=== PATIENT | female | born 1950 | race Caucasian/White ===

== ENCOUNTER → 2017-07-24 | Outpatient (CLI) | payer OTHER | LOC: CIMAGING 09:38 | PROVIDERS: ATTEND Obstetrics & Gynecology | DX: Z12.31 Encounter for screening mammogram for malignant neoplasm of breast (principal) | CPT/HCPCS: G0202 ==

== ENCOUNTER → 2017-11-08 | Outpatient (CLI) | payer OTHER | LOC: FIMAGING 14:31 | PROVIDERS: ATTEND Obstetrics & Gynecology | DX: Z13.820 Encounter for screening for osteoporosis (principal); M85.89 Other specified disorders of bone density and structure, multiple sites ==

== ENCOUNTER → 2018-01-11 | Outpatient (CLI) | payer OTHER | LOC: CIMAGING 08:43 | PROVIDERS: ATTEND Internal Medicine Endocrinology, Diabetes & Metabolism | DX: E04.2 Nontoxic multinodular goiter (principal) | CPT/HCPCS: 76536-PO ==

== ENCOUNTER 2018-02-21 13:15 | Observation (INO) | payer OTHER ==
--- NOTE | 2018-02-15 13:29 | PDGENHP ---
History and Physical History and Physical: Assessment and Plan: 1. Cystocele, lateral Carleen unfortunately has recurrent vaginal prolapse involving all 3 compartments but predominantly her anterior. We reviewed all conservative and surgical options. She has tried a pessary in the past and did not like how it felt. At the end of our discussion she wishes to schedule a sacral colpopexy. She would like this scheduled in [place]. We have requested a copy of her prior operative notes to better understand her prior surgeries. In the meantime I would like her to start using estrogen cream in the vagina 3 times per week until surgery. Addendum: We received a copy of 2 operative reports. In June 2010 she underwent a laparoscopic-assisted vaginal hysterectomy and posterior repair. A urologist placed a polypropylene retropubic top-down mid urethral sling. We do not have a copy of the hysterectomy or posterior repair operative note. In March 2011 she underwent a transvaginal anterior wall repair with the Prosima transvaginal mesh kit. This appears to have been a polypropylene mesh. 2. Rectocele 3. Post-menopausal atrophic vaginitis Subjective: Patient ID: Carleen aHrris is a 67 y.o. female who presents to [facility] for prolapse. HPI Carleen Harris presents for a preoperative visit. She is scheduled for a sacrocolpopexy. The risks, benefits, and alternatives were presented and informed consent was obtained. 40 minutes of this 40 minute appointment was spent counceling, reviewing the procedure in detail, and discussing the preoperative and postoperative instructions. Below is a copy of our prior visit note. Carleen was kindly referred by Dr. Wolf for vaginal prolapse. Her history is significant for a vaginal hysterectomy with what sounds like an anterior colporrhaphy, possibly with mesh in [place] in 2009. She then had some sort of failure and was told the vaginal wall is now falling down. A second vaginal surgery with mesh was performed in 2010. She had been doing fairly well until about 1 year ago when she noticed a protrusion once again from her vagina. She can feel it stick out. It is not as severe as it was before. She does have some difficulty voiding and must void 4 times within a 30 minute period first thing in the morning. She also has urinary urgency at night and at times can leak on the way. She wakes up between 0 and 1 time per night. She has learned to reduce her fluid intake before going to sleep. She often must change positions or splint to empty her bladder more completely. She has no stress incontinence symptoms. She has had some problems with fecal urgency but this has improved since stopping her magnesium supplementation. She remains sexually active. She has no dyspareunia. PastMedicalHistory Past Medical History: Diagnosis Date Allergy to pollen Anemia Thyroid disease Nodules Trauma Urinary tract infection Varicella PastSurgicalHistory Past Surgical History: Procedure Laterality Date BLADDER SURGERY 2009 DILATION AND CURETTAGE OF UTERUS HYSTERECTOMY 2009 TONSILLECTOMY VAGINAL PROLAPSE REPAIR 2010 CURRENT MEDICATIONS: Current Outpatient Prescriptions Medication Sig ergocalciferol, vitamin D2, (VITAMIN D PO) calcium carbonate-vitamin D3 600 mg-400 unit per tablet Take 2 tablets by mouth daily. No current facility-administered medications for this visit. ALLERGIES: Patient has no known allergies. I have reviewed, verified and agree with the past medical, surgical, , family, social and ROS history as documented by the RN today. Objective: Vital Signs: Visit Vitals BP 100/58 Pulse 69 Temp 37 C (98.6 F) (Temporal Artery) Resp 14 Ht 1.473 m (4' 10") Wt 47.4 kg (104 lb 6.4 oz) SpO2 96% BMI 21.82 kg/m Physical Exam Gen: This is an alert, well developed woman in no distress. Neuro: She moves all extremities. Psych: She is appropriate, oriented, with normal affect. Neck: No thyroid enlargement, adenopathy, or tenderness. Lungs: Clear to ascultation, no wheezes or rales. Heart: Regular rate and rhythm without obvious murmurs. Abdomen: Soft, non-tender, without guarding, rebound, or masses. Extremities: No edema or cyanosis. Pelvic: Normal external genitalia. Non-gaping introitus, vagina without discharge, atrophic. As a third-degree cystourethrocele, second-degree vaginal vault prolapse, and second-degree rectocele. The vagina is slightly shortened. DATA: I have reviewed the pertinent medical records. TIME/COMMUNICATION: I personally spent a total of 50 minutes. Of that 40 minutes was counseling/ coordination of patient's care. See my note above for details. Ivan Padilla MD Board Certified Female Pelvic Medicine and Reconstructive Surgery Director of Minimally Invasive Gynecologic Surgery, [facility] Surgeon in Minimally Invasive Gynecologic Surgery [facility] Surgeon in Robotic Surgery
[2018-02-28] MEDS ORDERED: PHENAZOPYRIDINE HCL 200 MG TAB PO ONE (12:21)
[2018-02-28] MEDS ORDERED: ACETAMINOPHEN 500 MG TAB PO ONE (12:21)
[2018-02-28] MEDS ORDERED: ceFAZolin 2 GM/SWFI 2 GM/20 ML SYR IVP ONE (12:21)
[2018-02-28] MEDS ORDERED: LIDOCAINE 1% 2 ML INJ ID PRN (12:22)
[2018-02-28] MEDS ORDERED: LR 1,000 ML IV ONE (12:22)
--- NOTE | 2018-02-28 13:26 | PDHPUP ---
History & Physical Update H&P update statement: This history and physical update is based on an assessment of the patient which was completed after admission or registration (within 24 hours), but prior to the surgery/procedure. H&P update: H&P reviewed & patient examined, no change in patient's condition since H&P completed
--- NOTE | 2018-02-28 14:02 | PDANEPAE ---
ANE Past Medical History - Cardiovascular History Hx Hypertension: No Hx Arrhythmias: No Hx Chest Pain: No Hx Coronary Artery / Peripheral Vascular Disease: No Hx CHF / Valvular Disease: No Hx Palpitations: No - Pulmonary History Hx COPD: No Hx Asthma/Reactive Airway Disease: No Hx Recent Upper Respiratory Infection: No Hx Oxygen in Use at Home: No Hx Sleep Apnea: No Sleep Apnea Screening Result - Last Documented: Negative - Neurologic History Hx Cerebrovascular Accident: No Hx Seizures: No Hx Dementia: No - Endocrine History Hx Diabetes: No Obesity: no - Renal History Hx Renal Disorders: Yes Renal History Comment: frequency, slow to empty bladder - Liver History Hx Hepatic Disorders: No - Neurological & Psychiatric Hx Hx Neurological and Psychiatric Disorders: No - Cancer History Hx Cancer: No - Congenital Disorder History Hx Congenital Disorders: No - GI History Hx Gastrointestinal Disorders: No - Other Health History Other Health History: none - Chronic Pain History Chronic Pain: No - Surgical History Prior Surgeries: bladder repair/hysterectomy. vaginal prolapse repair. T.L. tonsillectomy child ANE Review of Systems Review of Systems: - Exercise capacity METS (RN): 4 METS ANE Patient History - Allergies Allergies/Adverse Reactions: No Known Allergies Allergy (Verified 01/29/18 10:11) - Home Medications Home Medications: Denosumab [Prolia] 60 mg SQ Q180D 01/22/18 [Last Taken 01/29/18] - NPO status NPO Since - Liquids (Date): 02/28/18 NPO Since - Liquids (Time): 10:45 NPO Since - Solids (Date): 02/27/18 NPO Since - Solids (Time): 23:00 - Smoking Hx Smoking Status: Never smoked ANE Labs/Vital Signs - Vital Signs Blood Pressure: 114/70 Heart Rate: 67 Respiratory Rate: 14 O2 Sat (%): 94 Height: 148.59 cm Weight: 43.091 kg ANE Physical Exam - Airway Neck exam: FROM Mallampati Score: Class 1 Mouth exam: normal dental/mouth exam - Pulmonary Pulmonary: no respiratory distress - Cardiovascular Cardiovascular: regular rate and rhythym ANE Anesthesia Plan Anesthesia Plan: general endotracheal anesthesia
[2018-02-28] MEDS ORDERED: fentaNYL 250 MCG/5 ML INJ ONE (14:04)
[2018-02-28] MEDS ORDERED: PROPOFOL 200 MG/20 ML VIAL ONE (14:04)
[2018-02-28] MEDS ORDERED: BUPIVACAINE 0.5% 30 ML SDV ONE (14:08)
[2018-02-28] MEDS ORDERED: LIDOCAINE 2% 5 ML SDV ONE (14:08)
[2018-02-28] MEDS ORDERED: ROCURONIUM 50 MG/5 ML VIAL ONE (14:08)
[2018-02-28] MEDS ORDERED: NALOXONE HCL 0.4 MG/ML INJ IVP PRN (16:00)
[2018-02-28] MEDS ORDERED: HYDROCODONE/APAP 5/325 TAB PO PRN (16:00)
[2018-02-28] MEDS ORDERED: LR 500 ML IV PRN (16:00)
[2018-02-28] MEDS ORDERED: PROMETHAZINE HCL 25 MG/ML INJ IVP PRN ×2 (16:00→16:20)
[2018-02-28] MEDS ORDERED: SUGAMMADEX SODIUM 200 MG/2 ML VIAL IVP ONE (16:11)
[2018-02-28] MEDS ORDERED: ONDANSETRON DISINTEGRATING 4 MG TAB PO PRN (16:20)
[2018-02-28] MEDS ORDERED: HYDROmorphONE/DILAUDID 1 MG/ML INJ IVP PRN (16:20)
[2018-02-28] MEDS ORDERED: ONDANSETRON 4 MG/2 ML VIAL IVP PRN (16:20)
[2018-02-28] MEDS ORDERED: OXYCODONE/APAP 5/325 TAB PO PRN (16:20)
--- NOTE | 2018-02-28 16:20 | POSTOPPROG ---
Post Op Note Date of Operation: 02/28/18 Surgeon: Ivan Padilla Weight Guesser: Shanta Gibson Anesthesia: GET(General Endotracheal) Pre-op Diagnosis: vaginal prolapse Post-op Diagnosis: same Procedure: sacrocolpopexy, cysto Findings: ureters function at end of case Inf/Abcess present in the surg proc area at time of surgery?: No EBL: Minimal Complications: None
[2018-02-28] MEDS ORDERED: DIAZEPAM 5 MG/ML 1 ML SYR IVP PRN (16:24)
--- NOTE | 2018-02-28 16:26 | POSTANESTH ---
Post Anesthetic Evaluation Cardiovascular Status: Normal, Stable Respiratory Status: Normal, Stable Level of Consciousness/Mental Status: Can Participate in Eval Pain Control: Adequate, Prn Tx Ordered Nausea/Vomiting Control: Adequate, Prn Tx Ordered Complications Possibly Related to Anesthesia: None Noted
[2018-02-28] MEDS ORDERED: LR 1,000 ML IV SCH (16:30)
[2018-02-28] MEDS ORDERED: fentaNYL 100 MCG/2 ML INJ ONE (16:38)
[2018-02-28] MEDS: fentaNYL 100 MCG/2 ML INJ IVP PRN ×2 (16:39→16:47)
[2018-02-28] MEDS: HYDROCODONE/APAP 5/325 TAB PO PRN ×2 (17:57→20:35)
[2018-02-28] MEDS: SIMETHICONE 80 MG TAB CHEW PO SCH ×2 (20:34→23:44)
[2018-02-28] MEDS: DOCUSATE SODIUM 100 MG CAP PO SCH (20:34)
[2018-02-28] MEDS: KETOROLAC 15 MG/1 ML SDV IVP SCH (22:27)
[2018-03-01] MEDS: HYDROCODONE/APAP 5/325 TAB PO PRN ×3 (00:39→11:05)
[2018-03-01] MEDS: KETOROLAC 15 MG/1 ML SDV IVP SCH (04:51)
[2018-03-01 08:26] VITALS: BP 83/47
[2018-03-01] MEDS: DOCUSATE SODIUM 100 MG CAP PO SCH (11:05)
[2018-03-01] MEDS: SIMETHICONE 80 MG TAB CHEW PO SCH (11:05)
--- NOTE | 2018-03-02 06:15 | GDS ---
[f rep st] DISCHARGE SUMMARY DISCHARGE DIAGNOSIS: 1. Cystocele. 2. Rectocele. 3. Vaginal prolapse. PROCEDURES: 1. Robotic-assisted laparoscopic sacrocolpopexy with mesh. 2. Repair of cystocele and rectocele. 3. Perineorrhaphy. 4. Cystoscopy. HISTORY: The patient is a 67-year-old female with symptomatic vaginal prolapse, after a prior failed mesh repair in [place]. She was taken to the operating room on 02/28/2018, where she underwent the above-mentioned procedures without complications. Her postoperative course was uneventful. The morning after surgery, she was ambulating, voiding, and tolerating a general diet. She was discharged home on postoperative day #1 in good condition. Medi cations included ibuprofen and Tylenol for pain. She was to follow up in the office 2 weeks after ifrah kirby. Her exam on the morning of discharge was benign. /[id number]/MODL
--- NOTE | 2018-03-02 08:26 | GOP ---
[f rep st] OPERATIVE REPORT DATE OF OPERATION: 02/28/2018 SURGEON: Ivan Padilla MD SUPERVISOR [employer] AUXILIARIES: Shanta Gibson CFA. ANESTHESIA: General. PREOPERATIVE DIAGNOSIS: 1. Cystocele. 2. Rectocele. 3. Vaginal vault prolapse. POSTOPERATIVE DIAGNOSIS: 1. Cystocele. 2. Rectocele. 3. Vaginal vault prolapse. PROCEDURE PERFORMED: 1. Robotic-assisted laparoscopic sacral colpopexy with mesh. 2. Repair of cystocele and rectocele. 3. Perineorrhaphy. 4. Cystoscopy. FINDINGS: SPECIMENS: None. ESTIMATED BLOOD LOSS: Scant. DESCRIPTION OF PROCEDURE: The patient was taken to the operating room. She was identified. General anesthesia was administered and found to be adequate. She was placed in the lithotomy position and prepared and draped in normal sterile fashion. A Lau catheter was placed in her bladder. A 1 cm infraumbilical incision was made with a scalpel. The Veress needle with the CO2 gas flowing w as advanced into the peritoneal cavity. The abdomen was then insufflated with carbon dioxide gas. T he 12 mm trocar followed by laparoscope were then inserted. The upper abdomen was unremarkable. Two lateral ports were placed on either side under direct visualization. She was then placed in [place] position and the da Joe robot docked on the left side. The instruments were then brought in to the abdominal cavity under direct visualization. A stent was placed in the vagina. The bladder was gently dissected off the anterior vaginal wall sumanth n to the level of the bladder neck. The patient's previously placed polypropylene mesh was adequatel y adherent to the anterior vaginal wall. The apical supports were not under any tension which, there fore, provided no support. A decision was made to leave the anterior wall mesh in place since it was not causing any problem and removing increased the risk of vaginal entry and subsequent mesh exposur e. The rectum was then gently dissected off the posterior vaginal wall down to the level of the maci rubén body. Measurements were then obtained and the mesh trimmed to size. The sigmoid colon was then retracted laterally. The sacral promontory was identified and overlying p eritoneum incised. The fat pad was gently dissected off the anterior longitudinal ligament. The mes h was then brought into the abdominal cavity. Three sutures of 4-0 Hudson-Harley were used to attach the distal posterior mesh to the perineal body. Two additional rows of Hudson-Harley sutures were placed post eriorly. Three rows were placed anteriorly to suture down to the level of bladder neck and laterally to the paravaginal tissue. The stent was then removed. Tension was then applied to the sacral arm of the mesh over the sacral promontory. I then scrubbed back into the case to examine the vagina. T he tension was further adjusted to resolve the cystocele and rectocele without undue tension on the v agina. Two sutures of 2-0 Hudson-Harley were used to attach the sacral arm of the mesh to the anterior lo ngitudinal ligament at the level of the upper first sacral vertebral body below the intervertebral di sk space. The excess mesh was then trimmed. The peritoneum was then closed over the entire mesh wit h 3 0 V-Loc 90 suture. The robot was then undocked. The fascia was closed with 0 Vicryl, skin with 4-0 Monocryl and surgical adhesive. Cystoscopy was then performed. Both ureters had vigorous jets of urine. There was no evidence of bl adder nor urethral injury seen. No mesh nor suture was seen within the bladder nor urethra. No obvi ous pathology was seen. A transverse incision was then made along the perineal body. The posterior vaginal epithelium was un dermined with Metzenbaum scissors and incised sagittally. The patient appeared to have a transverse break of the rectovaginal septum off the perineal body. It was reapproximated with interrupted sutur es of 0 Vicryl. The excess epithelium was then trimmed and closed with a running 2-0 Vicryl suture. Vaginal packing was then placed. Anesthesia was reversed. The patient was taken to PACU awake, in stable condition. COMPLICATIONS: None. DISPOSITION: Patient stable to PACU. /[id number]/MODL
== END 2018-03-01 11:24 | disposition home or self-care (01) ==
LOC: F3N 02-28 12:09 → FOB 02-28 17:22
PROVIDERS: ADMIT Obstetrics & Gynecology; ATTEND Obstetrics & Gynecology
DX: N81.11 Cystocele, midline (principal); N81.6 Rectocele; N99.3 Prolapse of vaginal vault after hysterectomy; R39.15 Urgency of urination; N95.2 Postmenopausal atrophic vaginitis; E04.2 Nontoxic multinodular goiter; Z87.440 Personal history of urinary (tract) infections; Z90.710 Acquired absence of both cervix and uterus
CPT/HCPCS: 57250; 57425; C1763; J0690; J1885; J2704; J3010

== ENCOUNTER → 2018-10-04 | Outpatient (CLI) | payer OTHER | LOC: FIMAGING 12:42 | PROVIDERS: ATTEND Family Medicine | DX: Z12.31 Encounter for screening mammogram for malignant neoplasm of breast (principal); Z80.3 Family history of malignant neoplasm of breast ==

== ENCOUNTER → 2019-01-28 | Outpatient (CLI) | payer OTHER | LOC: CIMAGING 10:07 | PROVIDERS: ATTEND Internal Medicine Endocrinology, Diabetes & Metabolism | DX: E04.2 Nontoxic multinodular goiter (principal) | CPT/HCPCS: 36415-PO; 76536-PO ==